=== PATIENT | female | born 1980 | race African-American/Black ===

== ENCOUNTER 2017-03-07 16:26 | Emergency (ER) | payer SELFPAY ==
[~2017-03-07 16:26] MED LIST: ALPRAZOLAM PO; CIPRO PO; FIORICET 50-321 EACH PO; FLEXERIL10 MG PO; IBUPROFEN800 MG PO; KEPPRA500 M1 PO; KEPPRA750 MG PO; PAXIL10 MG PO; ROBITUSSIN A-C S5 ML PO; VICODIN 5/500 T1 TAB PO; XANAX1 MG PO
== END 2017-03-07 16:58 | disposition left against medical advice (07) ==
LOC: CED 16:26
DX: Z53.21 Procedure and treatment not carried out due to patient leaving prior to being seen by health care provider (principal)